=== PATIENT | female | born 1930 | race Caucasian/White ===

== ENCOUNTER → 2016-04-19 | Outpatient (REF) | payer MEDICARE, MEDICAID ==
[2016-04-19 17:11] LABS: REASON FOR REVIEW COMPREHENSIVE REVIEW
[2016-04-19 18:10] LABS: PERCENT SATURATION 73.1 % (13.2-37.4)
[2016-04-24 14:20] LABS: ERYTHROPOIETIN 29.3 mIU/mL (2.6-18.5)
== END ==
LOC: M LAB REF 16:22
PROVIDERS: ATTEND Internal Medicine Medical Oncology
DX: D53.9 Nutritional anemia, unspecified (principal); D72.829 Elevated white blood cell count, unspecified; C95.90 Leukemia, unspecified not having achieved remission

== ENCOUNTER 2016-07-04 10:46 | Inpatient (IN) | payer MEDICARE, MEDICAID ==
[2016-07-04] VITALS (13 sets, daily range): BP systolic 98–124; BP diastolic 51–60; O2SAT 96–98
[~2016-07-04] VITALS: Ht 160 cm; Wt 55.7 kg
[2016-07-04 14:07] LABS: ABG BASE EXCESS 6.3 (-2.0-2.0); ABG DEVICE HIGH FLOW O2; ABG HCO3 31.4 MEQ/L (22.0-26.0); ABG PARTIAL PRESSURE CO2 48.3 mmHg (35.0-45.0); ABG PARTIAL PRESSURE O2 75.8 mmHg (75.0-100.0); ABG STANDARD HCO3 30.2 MEQ/L (22.0-26.0); ABG TOTAL CO2 32.9 MEQ/L (23.0-31.0); ABG pH (ARTERIAL) 7.431 UNITS (7.350-7.450)
[2016-07-04] MEDS ORDERED: FUROSEMIDE 100 MG/10 ML VIAL (J1940) As Ordered ONE (14:23)
[2016-07-04] MEDS ORDERED: FUROSEMIDE 100 MG/10 ML VIAL (J1940) IV ONE (14:30)
[2016-07-04] MEDS ORDERED: ONDANSETRON 4MG/2ML VIAL (J2405) IV PRN (14:30)
--- NOTE | 2016-07-04 15:04 | REP ---
Clinical: Shortness of breath. Technique: Portable semiupright view of the chest. Findings: Perihilar and bilateral lower lobe opacities suggest moderate effusions and pulmonary vascular congestion with interstitial edema and basilar atelectasis. No pneumothorax. Mediastinum and cardiac silhouette are incompletely evaluated due to overlying opacities. Skeletal structures demonstrate osteopenia and degenerative changes including chronic left shoulder fracture. Impression: Findings suggest CHF including bibasilar opacities, pleural effusions and atelectasis. Signed by Jimy Mccartney MD 07/04/2016 02:55 P
[2016-07-04] MEDS ORDERED: COLA100C3 PO (15:21)
[2016-07-04] MEDS ORDERED: IPRASOL4 INH (15:21)
[2016-07-04] MEDS ORDERED: VANC1INJ45 IV (15:21)
[2016-07-04] MEDS ORDERED: OXYC-517 PO (15:21)
[2016-07-04] MEDS ORDERED: LEVO1INJ27 IV (15:21)
[2016-07-04] MEDS ORDERED: GUAI60TA PO (15:21)
[2016-07-04] MEDS ORDERED: ZOSY3INJ2 IV (15:21)
[2016-07-04] MEDS ORDERED: LOVE1INJ2 SC (15:21)
[2016-07-04] MEDS: IPRATROPIUM 0.5MG/ALBUTEROL 2.5MG INH SOL UD 3ML (DUONEB)(J7620) NEB SCH ×2 (16:00→19:40)
--- NOTE | 2016-07-04 16:41 | HPE ---
DATE OF ADMISSION: 07/04/2016 PRIMARY CARE PROVIDER: None listed. ONCOLOGIST: Dr. Hernandez. CODE STATUS: DO NOT RESUSCITATE (DNR). CHIEF COMPLAINT: Shortness of breath. HISTORY OF PRESENT ILLNESS: Miss Álvarez is an 86-year-old female who I accepted on transfer from [facility] from Dr. Clark. Apparently she was originally treated for a left hip fracture earlier this month resulting in an open reduction internal fixation (ORIF), had been sent home and readmitted on 07/02/2016 for increasing shortness of breath, bilateral pulmonary infiltrates with sputum culture positive for Staphylococcus coagulase-positive and Pseudomonas. Was started on triple antibiotic therapy including vancomycin, Zosyn and Levaquin. Had continued to require oxygen supplementation. Concern for sepsis at that time was documented. Her lactic acid however, remained below 1. She did have an initial white count of approximately 18,000. This morning her labs revealed a white count of 26,000. She did requiring increasing oxygen supplementation with eventually the need to go on a non-rebreather. I did review the ABG with the [facility] provider which indicated that she had a compensated slight respiratory alkalosis and due to her worsening condition, I did agree to accept her on transfer. PAST MEDICAL HISTORY: Includes recurrent blood transfusions lower extremity edema, chronic leukemia which she sees Dr. Hernandez for. Her family informs me that she has been in relatively good health prior to her recent hip fracture. Additionally, the nurse did note that she had a stage II decubitus ulcer noted on the buttocks region which has been documented by the nursing notes as well. PAST SURGICAL HISTORY: Left hand tendon surgery, left hip surgery secondary to a left hip fracture recently. SOCIAL HISTORY: She denies tobacco use, alcohol use. No substance abuse. No recent travel. No sick contacts. FAMILY HISTORY: Noncontributory due to advanced age. ALLERGIES: NO KNOWN DRUG ALLERGIES. CURRENT MEDICATIONS: - Colace 100 mg twice a day - albuterol nebs as directed every 6 hours - Lovenox 30 mg every 12 hours - Mucinex 1200 mg every 12 hours - Levaquin 750 mg every 2 days - Oxycodone 5 mg every 4 hours as needed - Zosyn 3.375 grams every 6 hours - Vancomycin daily REVIEW OF SYSTEMS: CONSTITUTIONAL: The patient has had fevers, chills, no rigors, decreased appetite. HEENT: She denies headache, lightheadedness, dizziness, blurry vision, double vision, no difficulty with speech or swallow. PULMONARY: She has had increasing shortness of breath, nonproductive wet cough. No sputum last 24 hours. No hemoptysis. CARDIOVASCULAR: She has had some palpitations 2+ lower extremity edema reported prior to coming to the hospital. She denies chest pain. GI: No nausea, vomiting, diarrhea bowel movements regular. She denies any hematochezia or melena. : No dysuria, frequency or hematuria. MUSCULOSKELETAL: Recent left hip fracture resulting in ORIF SKIN: She does have some skin breakdown on her buttocks region as well as the left lateral hip from previous surgical procedure. NEURO: She denies paresthesias, paralysis and numbness or memory loss. PSYCHIATRIC: No depression, anxiety. No suicidal ideation. ENDOCRINE: Negative for diabetes. No thyroid disorder. HEMATOLOGY/ONCOLOGY: Positive for chronic leukemia which she follows with Dr. Hernandez for. She denies history of venous thromboembolism. No bleeding disorder. She has had recurrent blood transfusion requirements in the past which we will go ahead and consent her for. LYMPHATICS: No lumps, bumps, swelling neck, axilla or groin. No weight loss. 10-point review of systems complete. PHYSICAL EXAMINATION: VITALS: Stable. Oxygen saturations are 94% on 3 liters currently. HEENT: Head is atraumatic, normocephalic. EYES: Pupils equal and reactive to light and accommodation. THROAT: Clear. Mucosa membranes moist. NECK: She does have jugular venous distension (JVD) at approximately 3 cm. LUNGS: Diminished bibasilar breath sounds. She does have crackles throughout all lung santo, occasional wheeze. HEART: Regular rate and rhythm. ABDOMEN: Soft, nontender. Positive bowel sounds. No masses or rebound. EXTREMITIES: She does have 3-4+pitting edema to the mid thighs. Pulses are equal. No calf tenderness. Examination of the left hip region does reveal good granulation of the wound site. She does have a lower lateral wound site that does appear to be slightly more erythematous with what appears to be some crusting. She does have some drainage and will go ahead and do a wound culture on this as well. Again stage II decubitus is noted in the buttocks / sacral region which was present on admission. LABS AND DIAGNOSTICS: 12-lead EKG sinus rhythm. No acute ST-T wave abnormality, ventricular rate is 80. Chest x-ray: Pleural effusion with bibasilar opacities were noted and she does have some cephalization noted of the pulmonary vasculature consistent with congestive heart failure. Her BNP is 267, CK, CK-MB and troponin are pending at this time. I also had an opportunity to review her labs from [facility] this morning and her white count was 26,000, hemoglobin 8.7, hematocrit was 28%, platelets are 252,000, PT 12.3, INR 1.1, D-dimer was 4.1 07/02/2016. We did do an ABG on her arrival here. Her pH 7.431, pCO2 is 48.3. Chemistries done earlier today, sodium 137, potassium 3.4, chloride 102, bicarb 33, anion gap 5, BUN is 18, creatinine 0.3, glucose is 106, AST 40, ALT is 25, alkaline phosphatase 104. IMPRESSION: Miss Álvarez is a pleasant 86-year-old female who presents to [facility] accepted on transfer due to increased hypoxia, shortness of breath and requiring increased need for oxygen supplementation. She grossly appears to be volume overloaded likely from intravenous (IV) fluids that she did receive from while admitted at [facility]. I did explain to the family that I could understand if there was a concern for sepsis and even for recent hip fracture that would be easy for her to be volume overloaded with giving most likely necessary IV fluids. We will go ahead and plan on diuresing her rather aggressively and keep her on telemetry in the intensive care unit (ICU) should her oxygen needs become more concerning she is currently a DO NOT RESUSCITATE/DO NOT INTUBATE. PROBLEM LIST: 1. Acute hypoxia. 2. Bilateral pulmonary infiltrates with positive sputum cultures for Staphylococcus coag positive and Pseudomonas likely underlying healthcare associated pneumonia. 3. Congestive heart failure, probable. She did have a 2-D echo performed previously at [facility] which recorded a good left ventricular ejection fraction. She likely needs aggressive diuresing 4. Recent left hip fracture from mechanical fall. 5. Left hip wound site which we will get a culture on. 6. Sacral decubitus ulcer stage II which was present on admission. We will continue with some foam dressings. 7. Chronic anemia which has required multiple transfusions in the past. I see that she had been on been on Lovenox previously. We will discontinue this and continue to repeat her hemoglobin and hematocrit (H and H). She does not appear to need transfusion Hem/Onc as previously recommended transfusion if hemoglobin drops below 8. 8. CLL. She is not currently receiving any specific therapy. 9. Deep venous thrombosis (DVT) prophylaxis. Again with TEDs and sequentials. 10. Gastrointestinal (GI) prophylaxis. I am actually going to hold off on a proton pump inhibitor (PPI) at this time. She does not appear to be critically ill although she does appear to be volume overloaded. Will try to diurese her overnight and my goal would be to downgrade her tomorrow if she is doing well. Prognosis is guarded at this time. DISPOSITION: I do anticipate she will be here greater than two midnights. Family was present at bedside. I was able to spend time answering several of their questions. 2-D echo performed on 07/03/2016 at [facility] was identified. 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 No change from prior 2-D echo done on 06/13/2016. It was dictating and the troponin level was 0.18. Will repeat this in the morning. I do suspect that with the congestive heart failure (CHF) that she likely has some demand ischemia going on. She has no acute findings on her EKG. Therefore we will repeat a cardiac marker panel on her tomorrow morning to see how she is doing after she has been aggressively diuresed. Will fluid restrict her 1800 mL for now. Strict intake and output (Is and Os) and will see how she does overnight.
--- NOTE | 2016-07-04 17:55 | PHACANCOPD ---
PHARMACY VANCOMYCIN DOSING Pt Demographics Demographics Patient Age:86 , Weight:62.200 , Gender: female Events Past 24 Hours Events Past 24 Hours: NO: Dialysis, Diuretic Therapy, Change in CrCl, Fever, Elevation in WBC, Pending Diagnostics, Pending Procedures, Other Vancomycin Vancomycin Target Ranges: 15-20 mcg/ml Vancomycin Load Y/N: Yes Load Dose Date Time Vancomycin ReLoad Dose: 1..25 GM Date: 07/04/16 Time: 20:00 Vancomycin Dose Date: 07/05/16. Current Vancomycin Dose: [1GM IV Q24H starting at 8AM] Intermittent Dosing?: No Labs Labs 07/03/16: BUN 23 SCR 0.4 Creatinine Clearance Date:07/03/16. Creatinine Clearance: [<40 ml/min]. Assessment and Plan Maintaining Current Dose?: No Reason for dose change: Trough too low Pharmacist Note Pharmacist Note Date: 07/04/16. Pharm.D. note: 86YO FEMALE, 62KG in WEIGHT, 63" in HEIGHT TRANSFERRED HERE FROM [facility] WHERE SHE WAS ON VANCO 500MG IV Q24H, LEVAQUIN 750MG IV Q48H & ZOSYN 3.375GM IV Q6H. A BUN/SCR 07/03/16 = 23/0.4 mcg/ ml. CRCL <40 ml/min. A VANCO TROUGH THIS MORNING = 3.2 mcg/ml. SHE WAS NOT RELOADED THERE DUE TO HER TRANSFER. WE WILL, THEREFORE, GIVE HER A 1.25GM ReLOAD TONIGHT AT 20:00 AND THEN INCREASE HER DAILY DOSE TO 1GM VANCO IV Q24H STARTING AT 8AM 07/05/16. A REPEAT TROUGH WILL BE DRAWN WHEN SHE IS AT STEADY STATE. JENNIFER, Pharm.D. [facility] July 04, 2016 17:55
[2016-07-04] MEDS: FUROSEMIDE 40 MG/4 ML VIAL (J1940) IV SCH (18:00)
[2016-07-04] MEDS: PIPERACILLIN/TAZOBACTAM SOD 3.375 GM in D5W MINI-BAG PLUS 50 ML IV SCH (18:00)
[2016-07-04] MEDS ORDERED: VANCOMYCIN HCL 750 MG, VIAL MATE ADAPTER 1 EACH in D5W 250 ML IV ONE (20:00)
[2016-07-04] MEDS ORDERED: VANCOMYCIN HCL 500 MG in D5W MINI-BAG PLUS 100 ML IV ONE (21:00)
[2016-07-04] MEDS: IPRATROPIUM 0.5MG/ALBUTEROL 2.5MG INH SOL UD 3ML (DUONEB)(J7620) NEB PRN (23:35)
[2016-07-05] VITALS (17 sets, daily range): BP systolic 93–126; BP diastolic 5–79
[2016-07-05] MEDS: FUROSEMIDE 40 MG/4 ML VIAL (J1940) IV SCH ×4 (00:15→18:00)
[2016-07-05] MEDS: PIPERACILLIN/TAZOBACTAM SOD 3.375 GM in D5W MINI-BAG PLUS 50 ML IV SCH ×3 (01:06→18:00)
[2016-07-05 04:49] LABS: MEAN CORPUSCULAR HEMOGLOBIN 30.2 pg (27.0-33.0); MEAN CORPUSCULAR VOLUME 94.5 fl (80.0-96.0)
[2016-07-05 05:15] LABS: ANION GAP 3 MEQ/L (8-16); BLOOD UREA NITROGEN 10 MG/DL (7-18); CALCIUM LEVEL 8.4 MG/DL (8.8-10.2); CARBON DIOXIDE LEVEL 35 MEQ/L (21-32); CHLORIDE LEVEL 103 MEQ/L (98-107); CREATININE FOR GFR 0.32 MG/DL (0.55-1.02); GLOMERULAR FILTRATION RATE > 60.0 (>32); GLUCOSE, FASTING 92 MG/DL (83-110); POTASSIUM SERUM 2.8 MEQ/L (3.5-5.1); SODIUM LEVEL 141 MEQ/L (136-145)
[2016-07-05] MEDS ORDERED: POTASSIUM CHLORIDE 10% LIQ 20 MEQ/15 ML UDC PO ONE (06:00)
[2016-07-05] MEDS: KCL 10MEQ IN 100ML SWI (KRUN) 10 MEQ in APPROPRIATE DILUENT 1 EA IV SCH ×4 (06:13→07:34)
[2016-07-05] MEDS: IPRATROPIUM 0.5MG/ALBUTEROL 2.5MG INH SOL UD 3ML (DUONEB)(J7620) NEB SCH ×3 (06:19→23:02)
[2016-07-05] MEDS: VANCOMYCIN HCL 1,000 MG, VIAL MATE ADAPTER 1 EACH in D5W 250 ML IV SCH (08:29)
[2016-07-05] MEDS ORDERED: VANCOMYCIN HCL 1,000 MG, VIAL MATE ADAPTER 1 EACH in D5W 250 ML IV SCH (09:00)
[2016-07-05 10:54] LABS: MAGNESIUM LEVEL 1.9 MG/DL (1.8-2.4)
[2016-07-05] MEDS: LevoFLOXacin IV 500 MG in APPROPRIATE DILUENT 1 EA IV SCH (11:08)
--- NOTE | 2016-07-05 12:07 | IPN ---
DATE: 07/05/2016 86-year-old female seen at bedside. Family is present. She does feel that she is breathing much better and she has diuresed greater than 4 liters since yesterday afternoon when she arrived from [facility]. She denies chest pain. She denies any significant shortness of breath. She did have some productive sputum late last night but no hemoptysis. No nausea or vomiting. She is tolerating oral intake. OBJECTIVE: Temperature 99.3, temporally, pulse is 94, respiratory rate is 20. She is able speak in complete sentences. She does not appear to be acutely labored. Blood pressure is 126/60, SpO2 96% on between 3-4 liters. GENERAL: The patient appears to be in no acute distress. She is alert, pleasant. HEENT: Unremarkable. LUNGS: Diminished bibasilar breath sounds, occasional crackles, but much improved from yesterday. HEART: Regular rate and rhythm. ABDOMEN: Soft. EXTREMITIES: No edema or calf tenderness. LABORATORY DATA: White count is 7.0, hemoglobin 7.9, platelets are 215,000. Sodium is 141, potassium 2.8, chloride 103, bicarbonate 35, anion gap 3, BUN is 10, creatinine 0.32, glucose 92, CK 22, troponin is 0.12 down from 0.18 yesterday. ASSESSMENT AND PLAN: 1. Acutely decompensated diastolic congestive heart failure, acutely decompensated secondary to volume overload. She is diuresing well. She does appear to be tolerating the Lasix and we will continue to monitor her renal function. 2. Anemia superimposed on her chronic lymphocytic leukemia, which she follows with Dr. Hernandez for. She is typed and screened. We will plan on giving her unit of packed red blood cells morning and giving her dose of Lasix immediately after the transfusion. 3. Hypokalemia, which is being repleted at this point. We will repeat a renal profile on her at noon to see if she needs any further repletion. I did add on a magnesium level as well. I do suspect this is secondary to renal losses due to the aggressive diuresing that we have been doing since she has been here; however, she does appear to be responding well. 4. Healthcare associated pneumonia. She continues on triple antibiotic therapy. We will continue this for another 24 hours and then plan on de-escalating her antibiotic therapy. 5. Acute hypoxia. She does appear to be much improved. 6. Recent left hip fracture and mechanical fall, status post repair with open reduction, internal fixation (ORIF). The wound site of the lower left area does appear to be a bit erythematous and puffy. We will go ahead and check an ultrasound to rule out abscess. 7. Stage II sacral decubitus ulcer present on admission. Continue with foam dressings. 8. Chronic lymphocytic leukemia, as dictated above. 9. Deep vein thrombosis (DVT) prophylaxis. TEDs and sequential. DISPOSITION" She does appear to be responding favorably to the Lasix. I am not going to repeat a 2-D echo. Her troponin does appear to be trending downward. I suspect that she did have slight bump in her troponin level due to demand ischemia and cardiac stretch from the volume overload. We will continue to follow to see how she is doing, but she does not demonstrate any significant issues overnight on telemetry. I suspect we will keep her in intensive care unit (ICU) overnight and then plan on downgrading her tomorrow, either to progressive care unit (PCU) or the general medical floor depending on how she is doing.
[2016-07-05 13:32] LABS: ALBUMIN 2.5 GM/DL (3.2-5.2); ANION GAP 3 MEQ/L (8-16); BLOOD UREA NITROGEN 10 MG/DL (7-18); CALCIUM LEVEL 9.1 MG/DL (8.8-10.2); CARBON DIOXIDE LEVEL 38 MEQ/L (21-32); CHLORIDE LEVEL 100 MEQ/L (98-107); GLOMERULAR FILTRATION RATE > 60.0 (>32); GLUCOSE, FASTING 110 MG/DL (83-110); PHOSPHORUS LEVEL 1.9 MG/DL (2.5-4.9); POTASSIUM SERUM 3.9 MEQ/L (3.5-5.1); SODIUM LEVEL 141 MEQ/L (136-145)
--- NOTE | 2016-07-05 14:32 | ECGEPIP ---
Stationary ECG Study [facility] Test Date: 2016-07-04 Pat Name: SJ ABREU Department: Room: [place] [address] Gender: F Brusher Machine: JAKOB : [id number] Requested By: KALPESH Chambers Order Number: [id number] Reading MD: Gil Cotton Measurements Intervals [place] Rate: 80 P: 44 CA: 151 QRS: 20 QRSD: 85 T: 38 QT: 355 QTc: 411 Interpretive Statements Normal sinus rhythm Low voltages with slow precordial R-wave progression and persistent S waves in V5 and V6; body habitus versus pulmonary disease. Could not rule out prior septal injury. No prior tracing for comparison Electronically Signed On 07-05-2016 14:32:01 EDT by Gil Cotton
--- NOTE | 2016-07-05 14:53 | REP ---
Clinical: Swelling and erythema. Technique: Real time acuña scale and color evaluation using linear high frequency transducer. Findings: Ultrasound examination of the left lower extremity demonstrates diffuse subcutaneous edema. Underlying the surgical incision is an avascular collection measuring 2.2 x 1.4 x 2.3 cm. Underlying the area of maximal erythema and swelling is an avascular complex fluid collection measuring 4.0 x 3.1 x 2.4 cm. Impression: 1. Diffuse lower extremity edema. 2. Fluid collection underlying the incision site may represents seroma, hematoma or possibly abscess. 3. Complex fluid collection at the site of maximal erythema and tenderness may represent hematoma or possibly abscess. Signed by Jimy Mccartney MD 07/05/2016 02:44 P
[2016-07-05] MEDS ORDERED: LIDOCAINE 1% MDV 20ML VIAL As Ordered ONE (16:01)
[2016-07-05] MEDS ORDERED: LIDOCAINE 1% MDV 20ML VIAL SC ONE (16:45)
--- NOTE | 2016-07-05 17:25 | CR ---
DATE OF CONSULTATION: 07/05/2016 REASON FOR CONSULTATION: Left thigh redness status post hip fracture surgery done and level to rule out hematoma or abscess. HISTORY: This is an 86-year-old woman who was about 3 weeks ago treated in [place] by Dr. Matos for a left hip fracture. It appears that she had a trochanteric femoral nail placed. This is based on the location of her incisions. X-ray is pending. She was transferred from [facility] yesterday to the intensive care unit for shortness of breath, bilateral pulmonary infiltrates with positive culture was staph coag positive and Pseudomonas. She has been started on antibiotic therapy. Apparently had a significant leukocytosis recently in the 26,000 range but today is actually 7000. She has been here overnight being diuresed and has improved clinically in terms of her respiratory status and overall well being. She denies any hip pain or any thigh pain. Apparently some sort of superficial culture was obtained from this wound area but this may be polymicrobial being superficial. Ultrasound had been obtained with evidence of possible complex fluid collection at the site of erythema. They felt this could represent a hematoma or possibly abscess. She has been essentially afebrile with a current temperature about 99. PAST MEDICAL HISTORY: Includes previous blood transfusions for chronic lymphocytic leukemia (CLL). She has a recent decubitus ulcer in her buttocks region. PAST SURGICAL HISTORY: Includes left hand tendon surgery, left hip fracture done as above. SOCIAL HISTORY: Denies to tobacco or alcohol use. ALLERGIES: She has no known drug allergies MEDICATIONS ON ADMISSION: Include colace, albuterol, Lovenox, Mucinex, Levaquin, oxycodone, Zosyn and vancomycin. REVIEW OF SYSTEMS: She denies any fevers, chills. Denies any headache, dizziness. PULMONARY: She has had increasing shortness of breath but has been improving overnight. She has had some degree of cough. CARDIOVASCULAR: Denies any particular shortness of breath. Reportedly some palpitations. GI: Denies any nausea, vomiting. MUSCULOSKELETAL: Recent left hip fracture. SKIN: As noted above with decubitus ulcer and buttocks area. NEURO: Denies any numbness, paresthesias or loss of consciousness. ENDOCRINE: Denies diabetes, thyroid. HEMATOLOGY/ONCOLOGY: Notable for chronic leukemia. PHYSICAL EXAMINATION: GENERAL: She is alert, oriented no acute distress. CHEST: Nonlabored breathing. Does have some apparent cough. She moves her neck without difficulties. ABDOMEN: Her abdomen appears to be benign. EXTREMITIES: Left hip area demonstrates a well well-healed incision on the lateral aspect of her hip probably a subcuticular stitch. She also has evidence of the more distal incision possibly were an interlocking screw had been placed that does show some mild swelling and mild erythema about a 2 cm area which is about the length of the incision. It is not tender and there is no current drainage. The radiograph is pending. Ultrasound as above. IMPRESSION: Left lateral sided thigh redness over what appears to be an incision for a distal interlock screw and I presume this is a trochanteric femoral nail system for probably an intertrochanteric or subtrochanteric hip fracture. This was treated at [place]. There is some concern is whether this represents hematoma or a possible infection. I do not think it is likely that it represents a deep infection because I think the patient would be more symptomatic with thigh and hip pain and she has no discomfort at all. RECOMMENDATIONS: My recommendation would be to try to get some fluid from this area and I consented her for this and I explained I would try to aspirate with a needle and if that was unsuccessful with I would opened this up with small blade and obtain cultures. She understands the small risk of infection, drug reaction, bleeding. Under sterile conditions this was prepped and draped and I then injected some 1% plain lidocaine along this distal incision and then tried aspirated with an 18 gauge needle but was unsuccessful getting any fluid so I made an incision along the length of the previous incision about 2 cm. It felt as though there may be some stitches in the deeper tissues. I obtained some aerobic and anaerobic cultures but there was mostly just some clotted blood. There was no evidence of purulence. She tolerated this well. We will send these off for Gram stain culture. Continue with a intravenous (IV) antibiotics and then will follow this along for now. If for some reason it is clinically worsening we could consider a formal incision and drainage (I and D) in the operating room but I think this is not likely to be necessary.
--- NOTE | 2016-07-05 17:28 | REP ---
Clinical: Status post fixation. Technique: Portable AP and frog lateral views of the left hip. Findings: The patient is status post open reduction and fixation for femoral neck fracture. Satisfactory placement and alignment noted. Signed by Jimy Mccartney MD 07/05/2016 05:19 P
[2016-07-05] MEDS ORDERED: SLF 3 ML SYR IV PRN (18:30)
[2016-07-05] MEDS: ACETAMINOPHEN TAB 650MG DOSE (2X325MG) PO PRN (19:41)
[2016-07-05] MEDS: SLF 3 ML SYR IV SCH (20:39)
[2016-07-05] MEDS: guaiFENesin ER 600 MG TAB PO SCH (20:39)
[2016-07-06] VITALS (8 sets, daily range): BP systolic 108–139; BP diastolic 54–68; O2SAT 94
[2016-07-06] MEDS: FUROSEMIDE 40 MG/4 ML VIAL (J1940) IV SCH ×4 (00:18→18:00)
[2016-07-06] MEDS: PIPERACILLIN/TAZOBACTAM SOD 3.375 GM in D5W MINI-BAG PLUS 50 ML IV SCH ×3 (01:52→18:47)
[2016-07-06 04:55] LABS: MEAN CORPUSCULAR HEMOGLOBIN 30.9 pg (27.0-33.0); MEAN CORPUSCULAR HGB CONC 33.1 g/dl (32.0-36.5); MEAN CORPUSCULAR VOLUME 93.4 fl (80.0-96.0); RED CELL DISTRIBUTION WIDTH 20.7 % (11.5-14.5); WHITE BLOOD COUNT 7.2 K/mm3 (4.0-10.0)
[2016-07-06 05:14] LABS: ANION GAP 4 MEQ/L (8-16); BLOOD UREA NITROGEN 9 MG/DL (7-18); CARBON DIOXIDE LEVEL 35 MEQ/L (21-32); CHLORIDE LEVEL 100 MEQ/L (98-107); CREATININE FOR GFR 0.43 MG/DL (0.55-1.02); GLOMERULAR FILTRATION RATE > 60.0 (>32); GLUCOSE, FASTING 104 MG/DL (83-110); POTASSIUM SERUM 3.1 MEQ/L (3.5-5.1); SODIUM LEVEL 139 MEQ/L (136-145)
[2016-07-06] MEDS: SLF 3 ML SYR IV SCH ×3 (06:23→22:00)
[2016-07-06] MEDS ORDERED: FUROSEMIDE 100 MG/10 ML VIAL (J1940) IV ONE (07:15)
[2016-07-06] MEDS ORDERED: POTASSIUM CHLORIDE 10 MEQ SR TABLET PO ONE (07:15)
[2016-07-06] MEDS: IPRATROPIUM 0.5MG/ALBUTEROL 2.5MG INH SOL UD 3ML (DUONEB)(J7620) NEB SCH ×3 (07:32→23:44)
[2016-07-06] MEDS: VANCOMYCIN HCL 1,000 MG, VIAL MATE ADAPTER 1 EACH in D5W 250 ML IV SCH (08:43)
[2016-07-06] MEDS: guaiFENesin ER 600 MG TAB PO SCH ×2 (08:44→20:36)
[2016-07-06] MEDS: LevoFLOXacin IV 500 MG in APPROPRIATE DILUENT 1 EA IV SCH (11:50)
[2016-07-06] MEDS: IPRATROPIUM 0.5MG/ALBUTEROL 2.5MG INH SOL UD 3ML (DUONEB)(J7620) NEB PRN (11:53)
--- NOTE | 2016-07-06 13:56 | PHACANCOPD ---
PHARMACY VANCOMYCIN DOSING Pt Demographics Demographics Patient Age:86 , Weight:56.000 , Gender: female Vancomycin Vancomycin Target Ranges: 15-20 mcg/ml Vancomycin Load Y/N: Yes Load Dose Date Time Vancomycin ReLoad Dose: 1..25 GM Date: 07/04/16 Time: 20:00 Vancomycin Dose Date: 07/05/16. Current Vancomycin Dose: [1GM IV Q24H starting at 8AM] Intermittent Dosing?: No Labs Micro Microbiology 07/05/16 Anaerobic Culture, Received Pending 07/05/16 Gram Stain - Final, Resulted 07/05/16 Abscess Culture, Resulted Pending 07/04/16 Viral Culture, Received Pending 07/04/16 Gram Stain - Final, Resulted 07/04/16 Wound Culture, Resulted Pending Creatinine Clearance Date:07/03/16. Creatinine Clearance: [<40 ml/min]. Assessment and Plan Maintaining Current Dose?: Yes Reason for dose change: No Dose Change Pharmacist Note Pharmacist Note 07/06/16: A vancomycin trough has been scheduled tomorrow, 07/07/16, @0700. Scr and output remain stable. We will continue to monitor and make adjustments as needed. Date: 07/04/16. Pharm.D. note: 86YO FEMALE, 62KG in WEIGHT, 63" in HEIGHT TRANSFERRED HERE FROM [facility] w/[facility] WHERE SHE WAS ON VANCO 500MG IV Q24H, LEVAQUIN 750MG IV Q48H & ZOSYN 3.375GM IV Q6H. A BUN/SCR 07/03/16 = 23/0.4 mcg/ ml. CRCL <40 ml/min. A VANCO TROUGH THIS MORNING = 3.2 mcg/ml. SHE WAS NOT RELOADED THERE DUE TO HER TRANSFER. WE WILL, THEREFORE, GIVE HER A 1.25GM ReLOAD TONIGHT AT 20:00 AND THEN INCREASE HER DAILY DOSE TO 1GM VANCO IV Q24H STARTING AT 8AM 07/05/16. A REPEAT TROUGH WILL BE DRAWN WHEN SHE IS AT STEADY STATE. JENNIFER, Pharm.D. [facility] July 06, 2016 13:55
--- NOTE | 2016-07-06 14:28 | IPN ---
DATE: 07/06/2016 86-year-old female seen at bedside. No overnight issues. Resting comfortably, breathing comfortably. She does have nonproductive cough. Acapella is at bedside. No fevers, chills noted overnight. No nausea, vomiting. OBJECTIVE: Temperature 98.4, pulse 86, respiratory rate is 20, blood pressure 121/58, SPO2 is 94% on 3 liters. GENERAL: The patient appears to be in no acute distress. She is alert, pleasant. HEENT: Unremarkable. LUNGS: Have diminished bibasilar breath sounds, occasional wheeze clears with cough. HEART: Regular rhythm. ABDOMEN: Soft. EXTREMITIES: 2+ edema to below the knees. No calf tenderness. LABORATORY DATA: White count is 7.2, hemoglobin 10.4, platelets 232. Sodium 139, potassium 3.1, chloride 100, bicarb 35, anion gap 4, BUN 9, creatinine 0.43, glucose 104. Examination of the left lateral hip as well does show some good granulation of the wound site previously drained by Dr. Alvarez. Appreciate his input. He did not believe there is any evidence of purulence and the culture results are pending at this time. ASSESSMENT/PLAN: 1. Acutely decompensated diastolic congestive heart failure: She does appear to be volume overload when she presented to the emergency department. Doing well on Lasix. I did give her additional dose and she will need some potassium supplementation. 2. Hypokalemia: Likely due to aggressive diuresing. She is doing well otherwise. We will give her some potassium supplementation. 3. 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 Hernandez. She was typed, screened and given a unit of packed red blood cells yesterday. Lasix immediately after which likely caused some of the hypokalemia seen above. She is doing well otherwise. Dr. Hernandez is aware. 4. Healthcare associated pneumonia: Will continue with triple antibiotic coverage for the time being with Levaquin, Zosyn and vancomycin. 5. Acute hypoxia appears to be much improved. 6. Left hip fracture status post mechanical fall status post repair. She does have a erythematous area of the lateral hip at one of the wound sites. This was drained yesterday by Dr. Alvarez. Appreciate orthopedics input. Cultures pending at this time. Will continue with current antibiotics. I did request physical therapy (PT), occupational therapy ( OT), physical medicine rehabilitation (PMR) evaluation for possible rehab when she improves medically. 7. Stage II sacral decubitus ulcer present on admission. Continue with foam dressings 8. CLL dictated above. 9. Deep venous thrombosis (DVT) prophylaxis. Thromboembolic deterrent stockings (TEDS) and sequentials. DISPOSITION: She appears to be improving clinically each day. Will go ahead and downgrade her today to the medical floor. I do anticipate she will be here through the weekend and then perhaps ready for discharge to acute rehab on Saturday of next week.
[2016-07-07] MEDS: FUROSEMIDE 40 MG/4 ML VIAL (J1940) IV SCH ×4 (00:12→18:36)
[2016-07-07] MEDS: PIPERACILLIN/TAZOBACTAM SOD 3.375 GM in D5W MINI-BAG PLUS 50 ML IV SCH (02:04)
[2016-07-07] MEDS: SLF 3 ML SYR IV SCH ×3 (05:44→21:27)
[2016-07-07 06:00] VITALS: BP 122/60
[2016-07-07 06:59] LABS: MEAN CORPUSCULAR HEMOGLOBIN 30.8 pg (27.0-33.0); MEAN CORPUSCULAR HGB CONC 33.6 g/dl (32.0-36.5); MEAN CORPUSCULAR VOLUME 91.8 fl (80.0-96.0); RED CELL DISTRIBUTION WIDTH 19.7 % (11.5-14.5); WHITE BLOOD COUNT 11.6 K/mm3 (4.0-10.0)
[2016-07-07 07:21] LABS: ANION GAP 6 MEQ/L (8-16); BLOOD UREA NITROGEN 9 MG/DL (7-18); CALCIUM LEVEL 8.6 MG/DL (8.8-10.2); CARBON DIOXIDE LEVEL 38 MEQ/L (21-32); CHLORIDE LEVEL 97 MEQ/L (98-107); CREATININE FOR GFR 0.43 MG/DL (0.55-1.02); GLOMERULAR FILTRATION RATE > 60.0 (>32); GLUCOSE, FASTING 92 MG/DL (83-110); POTASSIUM SERUM 2.9 MEQ/L (3.5-5.1); SODIUM LEVEL 141 MEQ/L (136-145)
[2016-07-07] MEDS: IPRATROPIUM 0.5MG/ALBUTEROL 2.5MG INH SOL UD 3ML (DUONEB)(J7620) NEB SCH ×3 (07:28→23:24)
[2016-07-07] MEDS: POTASSIUM CHLORIDE 10 MEQ SR TABLET PO SCH ×2 (08:00→12:42)
[2016-07-07] MEDS: VANCOMYCIN HCL 1,000 MG, VIAL MATE ADAPTER 1 EACH in D5W 250 ML IV SCH (08:00)
--- NOTE | 2016-07-07 08:39 | PHACANCOPD ---
PHARMACY VANCOMYCIN DOSING Pt Demographics Demographics Patient Age:86 , Weight:57.800 , Gender: female Events Past 24 Hours Events Past 24 Hours: YES: Elevation in WBC, NO: Dialysis, Diuretic Therapy, Change in CrCl, Fever, Pending Diagnostics, Pending Procedures, Other Vancomycin Vancomycin Target Ranges: 15-20 mcg/ml Vancomycin Load Y/N: Yes Load Dose Date Time Vancomycin ReLoad Dose: 1..25 GM Date: 07/04/16 Time: 20:00 Vancomycin Dose Date: 07/07/16. Current Vancomycin Dose: [1g IV q18h @08] Date: 07/05/16. Current Vancomycin Dose: [1GM IV Q24H starting at 8AM] Intermittent Dosing?: No Labs Labs Vital Signs Label Value Date Time Patient Temperature 99.1 degrees F 07/06/16 2200 Temperature Source Core 07/06/16 2200 Patient Temperature 99.0 degrees F 07/06/16 1145 Temperature Source Core 07/06/16 1145 Patient Temperature 98.6 degrees F 07/07/16 0600 Temperature Source Core 07/07/16 0600 Item Value Date Time White Blood Count 7.0 K/mm3 07/05/16 0436 White Blood Count 7.2 K/mm3 07/06/16 0433 White Blood Count 11.6 K/mm3 H 07/07/16 0652 Vancomycin Level Trough 8.1 UG/ML L 07/07/16 0652 Creatinine 0.40 MG/DL L 07/05/16 1233 Creatinine 0.43 MG/DL L 07/06/16 0433 Creatinine 0.43 MG/DL L 07/07/16 0652 Micro Microbiology 07/05/16 Anaerobic Culture - Final, Complete 07/05/16 Gram Stain - Final, Complete 07/05/16 Abscess Culture - Final, Complete 07/04/16 Viral Culture, Received Pending 07/04/16 Gram Stain - Final, Complete 07/04/16 Wound Culture - Final, Complete Staphylococcus Sp Coag Neg Bacillus Sp., Not Anthracis Creatinine Clearance Date:07/03/16. Creatinine Clearance: [<40 ml/min]. Assessment and Plan Maintaining Current Dose?: No Reason for dose change: Trough too low Pharmacist Note Pharmacist Note Date: 07/07/16. Pharmacist note: vanco trough drawn ~1 hour before the 3rd dose was 8.1. I have changed her dosing to 1g IV q18h, SCr is stable & abnormally low. Zosyn has been stopped. We will continue to monitor. 07/06/16: A vancomycin trough has been scheduled tomorrow, 07/07/16, @0700. Scr and output remain stable. We will continue to monitor and make adjustments as needed. Date: 07/04/16. Pharm.D. note: 86YO FEMALE, 62KG in WEIGHT, 63" in HEIGHT TRANSFERRED HERE FROM [facility] w/[facility] WHERE SHE WAS ON VANCO 500MG IV Q24H, LEVAQUIN 750MG IV Q48H & ZOSYN 3.375GM IV Q6H. A BUN/SCR 07/03/16 = 23/0.4 mcg/ ml. CRCL <40 ml/min. A VANCO TROUGH THIS MORNING = 3.2 mcg/ml. SHE WAS NOT RELOADED THERE DUE TO HER TRANSFER. WE WILL, THEREFORE, GIVE HER A 1.25GM ReLOAD TONIGHT AT 20:00 AND THEN INCREASE HER DAILY DOSE TO 1GM VANCO IV Q24H STARTING AT 8AM 07/05/16. A REPEAT TROUGH WILL BE DRAWN WHEN SHE IS AT STEADY STATE. JENNIFER, Pharm.D. Eleazar Arboleda Pharm.D. July 07, 2016 08:39
[2016-07-07] MEDS: guaiFENesin ER 600 MG TAB PO SCH ×2 (08:54→21:27)
--- NOTE | 2016-07-07 08:54 | IPN ---
DATE: 07/07/2016 86-year-old female seen at bedside resting comfortably. She is receiving a nebulizer treatment. She has continued to have good urine outputs measured each day. She is approximately 13 liters negative this point. She did have some abdominal discomfort earlier today. A ultrasound of bladder did show that she is was retaining some fluid. Her Simon catheter was adjusted, apparently it did have a kink in it and appears to be draining quite well at this time. She denies any other complaints currently. OBJECTIVE: Temperature is 98.6, pulse 88, respiratory rate 18, BP 122/60, SPO2 is 93% on 4 liters. General: The patient appears to be in no acute distress. She is alert, pleasant. HEENT: Unremarkable. Lungs: Diminished bibasilar breath sounds with a few crackles, but does appear to be improving. Heart: Regular rate and rhythm. Abdomen: Soft. Extremities: She does have 1+ edema just below the knees. No calf tenderness. Pulses are palpable. LABORATORY DATA: White count is 11.6, hemoglobin 10.7, platelets are 221,000, sodium 141, potassium 2.9, chloride 97, bicarb 38, anion gap 6, BUN is 9, creatinine 0.43, glucose is 92, calcium 8.6. ASSESSMENT/PLAN: 1. Acutely decompensated diastolic congestive heart failure. She presented in what appeared to be quite a bit of volume overload. She has had approximately 13+ liters that she has been able to put out, she is not quite euvolemic as of yet. We will continue with the Lasix and potassium supplementation as needed. 2. Hypokalemia, likely due to aggressive diuresing we will supplement her potassium, recheck at noon. 3. 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 Dr. Bryant is aware we did give her a blood transfusion previously and she does appear to be maintaining a good H H. I would like to go ahead and do a chest x-ray on her today. We will likely de-escalate her to single therapy with Levaquin at this point. 4. Acute hypoxia appears to be much improved with diuresing,she is still requiring some oxygen supplementation. 5. Left hip fracture status post mechanical fall status post repair. Erythematous area in the left hip. Appreciate Dr. Alvarez's assistance with drainage of small are likely seroma. Her wound culture however grew Staphylococcus coag-negative which does have multiple resistance, we will likely need to keep on vancomycin for a few more days for this as well. At any rate she remains afebrile. 6. Stage II sacral decubitus ulcer present on admission. Continue the foam dressings. 7. CLL as dictated above. 8. Deep venous thrombosis (DVT) prophylaxis with SOUTH and sequentials. DISPOSITION: The patient is making some good progress. We will continue to diurese. I would like to de-escalate her antibiotics, do a chest x-ray and see if we can get her down to Levaquin and vancomycin to cover the skin infection as well as the pneumonia. We will supplement the potassium as indicated. Continue with Lasix. Chest x-ray today. We do have physical therapy, occupational therapy evaluations in place and at the beginning of the week I would like for her to evaluated for PM R status. She will likely need to be able to complete 3 hours of therapy. All-in-all she does appear to be progressing nicely, but I do suspect that she will have a few more days before she is ready to be evaluated for PM R.
--- NOTE | 2016-07-07 09:13 | REP ---
Clinical: Cough. Technique: AP and lateral. Comparison: 07/04/2016. Findings: [id number] bilateral pleural effusions with bibasilar atelectasis. Visualized portions of the mediastinum and cardiac silhouette are relatively normal / stable. Underlying chronic interstitial changes noted throughout the bilateral lung santo. No pneumothorax. Skeletal structures are stable and again demonstrate diffuse osteopenia and old proximal left shoulder fracture. Impression: [id number] bilateral pleural effusions with bibasilar atelectasis. Signed by Jimy Mccartney MD 07/07/2016 09:05 A
[2016-07-07] MEDS: LevoFLOXacin 500 MG TABLET PO SCH (12:42)
[2016-07-07 14:00] VITALS: BP 123/59
[2016-07-07 15:08] LABS: ALBUMIN 2.5 GM/DL (3.2-5.2); PHOSPHORUS LEVEL 2.5 MG/DL (2.5-4.9)
[2016-07-07 16:19] LABS: ALBUMIN 2.5 GM/DL (3.2-5.2); ANION GAP 3 MEQ/L (8-16); BLOOD UREA NITROGEN 11 MG/DL (7-18); CALCIUM LEVEL 8.7 MG/DL (8.8-10.2); CARBON DIOXIDE LEVEL 41 MEQ/L (21-32); CHLORIDE LEVEL 96 MEQ/L (98-107); CREATININE FOR GFR 0.51 MG/DL (0.55-1.02); GLOMERULAR FILTRATION RATE > 60.0 (>32); GLUCOSE, FASTING 108 MG/DL (83-110); PHOSPHORUS LEVEL 2.4 MG/DL (2.5-4.9); POTASSIUM SERUM 3.9 MEQ/L (3.5-5.1); SODIUM LEVEL 140 MEQ/L (136-145)
[2016-07-07 22:00] VITALS: BP 133/59
[2016-07-08] VITALS (7 sets, daily range): BP systolic 95–133; BP diastolic 50–63
[2016-07-08] MEDS: FUROSEMIDE 40 MG/4 ML VIAL (J1940) IV SCH ×4 (00:15→19:06)
[2016-07-08] MEDS: VANCOMYCIN HCL 1,000 MG, VIAL MATE ADAPTER 1 EACH in D5W 250 ML IV SCH ×2 (02:15→21:14)
[2016-07-08] MEDS: LevoFLOXacin 500 MG TABLET PO SCH (06:29)
[2016-07-08] MEDS: SLF 3 ML SYR IV SCH ×3 (06:30→21:14)
[2016-07-08 06:31] LABS: MEAN CORPUSCULAR HEMOGLOBIN 30.9 pg (27.0-33.0); MEAN CORPUSCULAR HGB CONC 33.1 g/dl (32.0-36.5); MEAN CORPUSCULAR VOLUME 93.4 fl (80.0-96.0); RED CELL DISTRIBUTION WIDTH 19.8 % (11.5-14.5); WHITE BLOOD COUNT 10.9 K/mm3 (4.0-10.0)
[2016-07-08 06:38] LABS: ANION GAP 4 MEQ/L (8-16); BLOOD UREA NITROGEN 10 MG/DL (7-18); CALCIUM LEVEL 8.8 MG/DL (8.8-10.2); CARBON DIOXIDE LEVEL 41 MEQ/L (21-32); CHLORIDE LEVEL 96 MEQ/L (98-107); CREATININE FOR GFR 0.43 MG/DL (0.55-1.02); GLOMERULAR FILTRATION RATE > 60.0 (>32); GLUCOSE, FASTING 87 MG/DL (83-110); MAGNESIUM LEVEL 2.1 MG/DL (1.8-2.4); POTASSIUM SERUM 3.4 MEQ/L (3.5-5.1); SODIUM LEVEL 141 MEQ/L (136-145)
[2016-07-08] MEDS ORDERED: POTASSIUM CHLORIDE 10 MEQ SR TABLET PO ONE (07:00)
[2016-07-08] MEDS: IPRATROPIUM 0.5MG/ALBUTEROL 2.5MG INH SOL UD 3ML (DUONEB)(J7620) NEB SCH ×2 (07:29→20:18)
[2016-07-08] MEDS: guaiFENesin ER 600 MG TAB PO SCH ×2 (09:37→21:14)
--- NOTE | 2016-07-08 11:37 | IPN ---
DATE: 07/08/2016 86-year-old female seen at bedside, actually sitting beside her bed eating breakfast this morning. She feels much better improvement with each day. OBJECTIVE: Temperature 98, pulse 85 and regular, respiratory rate 18, blood pressure 122/57 , SpO2 is 95% on 4 liters. GENERAL: The patient appears to be in no acute distress, alert, oriented. HEENT: Unremarkable. LUNGS: Diminished bibasilar breath sounds, occasional wheeze clears with cough. HEART: Regular rate and rhythm. ABDOMEN: Soft. EXTREMITIES: She does have some pitting edema still at the ankles. No calf tenderness. LABORATORY DATA: White count is 10.9 down from 11.6. Hemoglobin 10.2 and stable. Platelets 214,000. Sodium 141, potassium 3.4, supplemented, chloride 96, bicarb 41, anion gap 4, BUN is 10, creatinine 0.43, glucose 87. ASSESSMENT/PLAN: 1. Acutely decompensated diastolic congestive heart failure. She continues to do well with having good urine output. Will continue with Lasix and potassium supplementation as needed. 2. Hyperkalemia secondary to aggressive diuresing. Will continue with supplementation as needed. 3. Anemia superimposed on chronic lymphocytic leukemia (CLL). Her hemoglobin and hematocrit appears to be stable. Will continue to follow. No transfusion for today. 4. Acute hypoxia. Much improvement. Chest x-ray yesterday did show that she has bilateral pleural effusions. However, symptomatically she does appear to be improving with diuresis. 5. Left hip fracture status post mechanical fall, status post repair. Erythematous area on the left hip. Appreciate Dr. Alvarez's assistance. 6. Multi resistant staph coag-negative. Will leave her on vancomycin for a few more days for this. She remains afebrile. 7. Stage II sacral decubitus ulcer present on admission. Continue with foam dressing. 8. CLL. As dictated above. 9. Deep vein thrombosis (DVT) prophylaxis. Thromboembolic deterrent stockings (TEDS) and sequentials. DISPOSITION: 2D echo from [facility] showed a good ejection fraction. Will continue to try to diurese her some more. Continue with physical therapy, occupational therapy and evaluation for physical medicine and rehabilitation this coming Saturday. Again, her 2D echo performed at [facility] showed a good left ventricular ejection fraction. [facility]
[2016-07-09] MEDS: FUROSEMIDE 40 MG/4 ML VIAL (J1940) IV SCH ×2 (00:18→05:47)
[2016-07-09] MEDS: LevoFLOXacin 500 MG TABLET PO SCH (05:46)
[2016-07-09] MEDS: SLF 3 ML SYR IV SCH ×3 (05:47→20:07)
[2016-07-09 06:00] VITALS: BP 112/53
[2016-07-09 06:22] LABS: MEAN CORPUSCULAR HEMOGLOBIN 30.4 pg (27.0-33.0); MEAN CORPUSCULAR HGB CONC 32.5 g/dl (32.0-36.5); MEAN CORPUSCULAR VOLUME 93.7 fl (80.0-96.0); RED CELL DISTRIBUTION WIDTH 19.7 % (11.5-14.5); WHITE BLOOD COUNT 11.9 K/mm3 (4.0-10.0)
[2016-07-09 06:32] LABS: ANION GAP 3 MEQ/L (8-16); BLOOD UREA NITROGEN 13 MG/DL (7-18); CALCIUM LEVEL 9.2 MG/DL (8.8-10.2); CARBON DIOXIDE LEVEL 39 MEQ/L (21-32); CHLORIDE LEVEL 97 MEQ/L (98-107); CREATININE FOR GFR 0.43 MG/DL (0.55-1.02); GLOMERULAR FILTRATION RATE > 60.0 (>32); GLUCOSE, FASTING 91 MG/DL (83-110); POTASSIUM SERUM 3.3 MEQ/L (3.5-5.1); SODIUM LEVEL 139 MEQ/L (136-145)
[2016-07-09] MEDS: IPRATROPIUM 0.5MG/ALBUTEROL 2.5MG INH SOL UD 3ML (DUONEB)(J7620) NEB SCH ×3 (08:00→19:53)
[2016-07-09] MEDS ORDERED: POTASSIUM CHLORIDE 10 MEQ SR TABLET PO ONE (08:30)
--- NOTE | 2016-07-09 08:31 | IPN ---
DATE: 07/09/2016 Roberta is a patient of Dr. Wood'anupam who was admitted with diastolic congestive heart failure. She gets dizzy, weak and lightheaded when she stands up. Her pressures are a little soft today as well. She has a history of chronic lymphocytic leukemia with also some anemia which she contributes to her restlessness. Denies any chest pain or shortness of breath today. PHYSICAL EXAMINATION: 112/53, pulse 86, respirations 18, 94% oxygen saturation on 4 liters, 98.4 degrees. General appearance: Elderly, frail, resting comfortably. No jugular venous distention (JVD) present. Fibrotic rales both bases. Heart: Regular rhythm with 1/6 systolic ejection murmur. Abdomen: Soft, nontender, no masses, no peripheral edema. LABS: White count 11.9, hemoglobin 9.9, platelets 189. Sodium 139, potassium 3.3, BUN 13, creatinine 0.4, glucose 91. IMPRESSION: 1. Diastolic congestive heart failure, seems improved symptomatically. She still has high oxygen requirements. I am going to stop her IV Lasix today and put her on an oral dose of Lasix. 2. Coag negative staphylococcus. There is pseudomonas in her sputum. She is on vancomycin and Zosyn. These probably could be discontinued in another few days. 3. Anemia, stable. No need for transfusion today. 4. Left hip fracture, being seen by orthopedics here.
[2016-07-09] MEDS: guaiFENesin ER 600 MG TAB PO SCH ×2 (08:43→20:07)
[2016-07-09] MEDS: ACETAMINOPHEN TAB 650MG DOSE (2X325MG) PO PRN ×2 (09:53→18:37)
[2016-07-09 14:00] VITALS: BP 91/55
[2016-07-09] MEDS: VANCOMYCIN HCL 1,000 MG, VIAL MATE ADAPTER 1 EACH in D5W 250 ML IV SCH (14:29)
[2016-07-09 19:45] VITALS: O2SAT 94
[2016-07-09 22:00] VITALS: BP 104/55
[2016-07-10] MEDS: LevoFLOXacin 500 MG TABLET PO SCH (05:25)
[2016-07-10] MEDS: SLF 3 ML SYR IV SCH ×3 (05:25→20:08)
[2016-07-10 05:53] LABS: MEAN CORPUSCULAR HEMOGLOBIN 31.4 pg (27.0-33.0); MEAN CORPUSCULAR HGB CONC 33.4 g/dl (32.0-36.5); MEAN CORPUSCULAR VOLUME 94.2 fl (80.0-96.0); RED CELL DISTRIBUTION WIDTH 20.4 % (11.5-14.5)
[2016-07-10 06:00] VITALS: BP 95/52
[2016-07-10 06:06] LABS: ANION GAP 2 MEQ/L (8-16); BLOOD UREA NITROGEN 16 MG/DL (7-18); CALCIUM LEVEL 9.5 MG/DL (8.8-10.2); CARBON DIOXIDE LEVEL 39 MEQ/L (21-32); CHLORIDE LEVEL 98 MEQ/L (98-107); CREATININE FOR GFR 0.42 MG/DL (0.55-1.02); GLOMERULAR FILTRATION RATE > 60.0 (>32); GLUCOSE, FASTING 88 MG/DL (83-110); SODIUM LEVEL 139 MEQ/L (136-145)
[2016-07-10] MEDS: IPRATROPIUM 0.5MG/ALBUTEROL 2.5MG INH SOL UD 3ML (DUONEB)(J7620) NEB SCH ×3 (08:00→19:12)
[2016-07-10] MEDS: guaiFENesin ER 600 MG TAB PO SCH ×2 (08:41→20:07)
[2016-07-10] MEDS: VANCOMYCIN HCL 1,000 MG, VIAL MATE ADAPTER 1 EACH in D5W 250 ML IV SCH (08:41)
[2016-07-10] MEDS: FUROSEMIDE 40 MG TAB PO SCH (08:41)
[2016-07-10] MEDS: POTASSIUM CHLORIDE 10 MEQ SR TABLET PO SCH (08:42)
[2016-07-10 14:00] VITALS: BP 132/58
[2016-07-10] MEDS: ACETAMINOPHEN TAB 650MG DOSE (2X325MG) PO PRN (17:05)
[2016-07-10 19:02] VITALS: O2SAT 9
--- NOTE | 2016-07-10 21:40 | IPNPDOC ---
Subjective Date Seen The patient was seen on 07/10/16. Subjective Chief Complaint/HPI The patient is a 86-year-old female admitted with a reason for visit of Repiratory Distress. Events since last encounter patient does not offer any complaints this am. Objective Physical Examination General Exam: Positive: Alert, Cooperative, No Acute Distress Eye Exam: Positive: PERRLA, Conjunctiva & lids normal, EOMI, Negative: Sclera icteric ENT Exam: Positive: Atraumatic, Mucous membr. moist/pink, Pharynx Normal Neck Exam: Positive: Supple, Negative: JVD, thyromegaly Chest Exam: Positive: Normal air movement, Rales Heart Exam: Positive: Rate Normal, Regular Rhythm, Normal S1, Normal S2, Negative: Murmurs, Rubs Abdomen Exam: Positive: Normal bowel sounds, Soft, Negative: Tenderness, Hepatospenomegaly Extremity Exam: Positive: Normal pulses, Negative: Clubbing, Cyanosis, Edema Assessment /Plan Problems (1) HCAP (healthcare-associated pneumonia) Status: Acute Problem Text: finished course of antibiotics zosyn and vanco followed by levofloxacin and vanco received total 8 days of antibiotics. sputum culture from other hospital was pseudomonus and coagulase positive staph. (2) Diastolic CHF, acute on chronic Status: Acute Problem Text: will continue with diuresis. (3) Hypoxia Status: Acute Problem Text: multifactorial due to chf and HCAP will continue with oxygen supplementation. (4) Surgical wound infection Problem Text: possible cellulitis of the surgical wound of the hip fracture surgery finished 8 days of antibiotics. cultures of wound negative but gram stain was coagulase negative staph. (5) Hip fracture Status: Acute Problem Text: left hip fracture s/p ORIF in first week of june (6) Decubitus ulcer of back Status: Acute Problem Text: present on admission. (7) CLL (chronic lymphocytic leukemia) Status: Chronic (8) Anemia Status: Chronic Plan/VTE VTE Prophylaxis Ordered?: Yes VS, I&O, 24H, Fishbone Vital Signs/I&O Vital Signs Date Time Temp Pulse Resp B/P (MAP) Pulse Ox O2 Delivery O2 Flow Rate FiO2 07/10/16 19:02 9 Nasal Cannula 3.0 07/10/16 14:00 97.2 93 20 132/58 (82) 07/04/16 20:56 35 I&O- Last 24 Hours up to 6 AM 07/10/16 06:00 Intake Total 980 ml Output Total 550 ml Balance 430 ml Laboratory Data 24H LABS Laboratory Tests 2 07/10/16 05:34: Anion Gap 2L, Glomerular Filtration Rate > 60.0, Blood Urea Nitrogen 16, Creatinine 0.42L, Sodium Level 139, Potassium Level 4.0#, Chloride Level 98, Carbon Dioxide Level 39H, Calcium Level 9.5 CBC/BMP Laboratory Tests 07/10/16 05:34 Red Blood Count 3.05 L, Mean Corpuscular Volume 94.2, Mean Corpuscular Hemoglobin 31.4, Mean Corpuscular Hemoglobin Concent 33.4, Red Cell Distribution Width 20.4 H, Calcium Level 9.5 Microbiology Microbiology 07/05/16 Anaerobic Culture - Final, Complete 07/05/16 Gram Stain - Final, Complete 07/05/16 Abscess Culture - Final, Complete 07/04/16 Viral Culture, Received Pending 07/04/16 Gram Stain - Final, Complete 07/04/16 Wound Culture - Final, Complete Staphylococcus Sp Coag Neg Bacillus Sp., Not Anthracis CLAUDETTE FISHMAN MD July 10, 2016 21:40
[2016-07-10 22:00] VITALS: BP 100/50
[2016-07-11] MEDS: ACETAMINOPHEN TAB 650MG DOSE (2X325MG) PO PRN (00:15)
[2016-07-11] MEDS: SLF 3 ML SYR IV SCH (05:16)
[2016-07-11 06:00] VITALS: BP 108/54
[2016-07-11 06:35] LABS: MEAN CORPUSCULAR HEMOGLOBIN 30.8 pg (27.0-33.0); MEAN CORPUSCULAR VOLUME 93.5 fl (80.0-96.0); RED CELL DISTRIBUTION WIDTH 20.5 % (11.5-14.5); WHITE BLOOD COUNT 13.9 K/mm3 (4.0-10.0)
[2016-07-11 06:51] LABS: ANION GAP 4 MEQ/L (8-16); BLOOD UREA NITROGEN 17 MG/DL (7-18); CALCIUM LEVEL 9.5 MG/DL (8.8-10.2); CARBON DIOXIDE LEVEL 35 MEQ/L (21-32); CHLORIDE LEVEL 100 MEQ/L (98-107); CREATININE FOR GFR 0.48 MG/DL (0.55-1.02); GLOMERULAR FILTRATION RATE > 60.0 (>32); GLUCOSE, FASTING 90 MG/DL (83-110); POTASSIUM SERUM 3.8 MEQ/L (3.5-5.1); SODIUM LEVEL 139 MEQ/L (136-145)
[2016-07-11] MEDS: IPRATROPIUM 0.5MG/ALBUTEROL 2.5MG INH SOL UD 3ML (DUONEB)(J7620) NEB SCH (08:02)
[2016-07-11] MEDS: guaiFENesin ER 600 MG TAB PO SCH (08:11)
[2016-07-11] MEDS: FUROSEMIDE 40 MG TAB PO SCH (08:11)
[2016-07-11] MEDS: POTASSIUM CHLORIDE 10 MEQ SR TABLET PO SCH (08:12)
--- NOTE | 2016-07-11 11:49 | IPNPDOC ---
Subjective Date Seen The patient was seen on 07/11/16. Subjective Chief Complaint/HPI The patient is a 86-year-old female admitted with a reason for visit of Repiratory Distress. Events since last encounter no complaints this morning , requiring less oxygen Objective Physical Examination General Exam: Positive: Alert, Cooperative, No Acute Distress Eye Exam: Positive: PERRLA, Conjunctiva & lids normal, EOMI, Negative: Sclera icteric ENT Exam: Positive: Atraumatic, Mucous membr. moist/pink, Pharynx Normal Neck Exam: Positive: Supple, Negative: JVD, thyromegaly Chest Exam: Positive: Normal air movement, Rales Heart Exam: Positive: Rate Normal, Regular Rhythm, Normal S1, Normal S2, Negative: Murmurs, Rubs Abdomen Exam: Positive: Normal bowel sounds, Soft, Negative: Tenderness, Hepatospenomegaly Extremity Exam: Positive: Normal pulses, Negative: Clubbing, Cyanosis, Edema Assessment /Plan Problems (1) HCAP (healthcare-associated pneumonia) Status: Acute Problem Text: finished course of antibiotics zosyn and vanco followed by levofloxacin and vanco received total 8 days of antibiotics. sputum culture from other hospital was pseudomonus and coagulase positive staph. (2) Diastolic CHF, acute on chronic Status: Acute Problem Text: will continue with diuresis. (3) Hypoxia Status: Acute Problem Text: multifactorial due to chf and HCAP will continue with oxygen supplementation. (4) Surgical wound infection Problem Text: possible cellulitis of the surgical wound of the hip fracture surgery finished 8 days of antibiotics. cultures of wound negative but gram stain was coagulase negative staph. (5) Hip fracture Status: Acute Problem Text: left hip fracture s/p ORIF in first week of june (6) Decubitus ulcer of back Status: Acute Problem Text: present on admission. will get wound consult (7) CLL (chronic lymphocytic leukemia) Status: Chronic Problem Text: gets intermittent blood transfusion (8) Anemia Status: Chronic Plan/VTE VTE Prophylaxis Ordered?: Yes VS, I&O, 24H, Fishbone Vital Signs/I&O Vital Signs Date Time Temp Pulse Resp B/P (MAP) Pulse Ox O2 Delivery O2 Flow Rate FiO2 07/11/16 06:00 98.5 83 18 108/54 (72) 93 Nasal Cannula 2.0 I&O- Last 24 Hours up to 6 AM 07/11/16 05:59 Intake Total 1000 ml Output Total 1375 ml Balance -375 ml Laboratory Data 24H LABS Laboratory Tests 2 07/11/16 06:25: Anion Gap 4L, Glomerular Filtration Rate > 60.0, Blood Urea Nitrogen 17, Creatinine 0.48L, Sodium Level 139, Potassium Level 3.8, Chloride Level 100, Carbon Dioxide Level 35H, Calcium Level 9.5 CBC/BMP Laboratory Tests 07/11/16 06:25 Red Blood Count 3.21 L, Mean Corpuscular Volume 93.5, Mean Corpuscular Hemoglobin 30.8, Mean Corpuscular Hemoglobin Concent 33.0, Red Cell Distribution Width 20.5 H, Calcium Level 9.5 Microbiology Microbiology 07/05/16 Anaerobic Culture - Final, Complete 07/05/16 Gram Stain - Final, Complete 07/05/16 Abscess Culture - Final, Complete 07/04/16 Viral Culture, Received Pending 07/04/16 Gram Stain - Final, Complete 07/04/16 Wound Culture - Final, Complete Staphylococcus Sp Coag Neg Bacillus Sp., Not Anthracis CLAUDETTE FISHMAN MD July 11, 2016 11:49
[2016-07-11] MEDS ORDERED: FURO40TA2 PO (12:01)
[2016-07-11] MEDS ORDERED: ACET65TA PO (12:01)
[2016-07-11] MEDS ORDERED: GUAI60TA PO (12:01)
[2016-07-11] MEDS ORDERED: K-TA10TA PO (12:01)
--- NOTE | 2016-07-13 22:12 | DSES ---
DATE OF ADMISSION: 07/04/2016 DATE OF DISCHARGE: 07/11/2016 PRIMARY CARE PROVIDER: Dr. Chiang ONCOLOGIST: Dr. Hernandez DISCHARGE DIAGNOSIS: 1. Healthcare associated pneumonia, finished course of Zosyn and vancomycin. 2. Surgical wound site cellulitis, finished antibiotic treatment. 3. Acute on chronic diastolic congestive heart failure. 4. Unstageable decubitus ulcer of the back. 5. Chronic lymphocytic leukemia. 6. Chronic anemia 7. Hypoxia due to congestive heart failure (CHF) exacerbation and pneumonia , which is resolved. 8. Recent hip fracture on the left, status post open reduction and internal fixation (ORIF) in the first week of June. DISCHARGE MEDICATIONS: - Tylenol 650 mg every 4 hours as needed for pain - Lasix 40 mg by mouth daily - Mucinex 600 mg by mouth twice a day - potassium chloride 20 mEq by mouth daily - albuterol ipratropium nebulizer solution, one solution every 6 hours - Colace 100 mg by mouth twice a day HOSPITAL COURSE: This is an 86-year-old female who was transferred for [facility] where she was admitted for shortness of breath and bilateral pulmonary infiltrates with sputum production. Sputum culture was positive for staphylococcus coagulase positive and pseudomonas. The patient was diagnosed with healthcare associated pneumonia and was started on antibiotic therapy with vancomycin, Zosyn and Levaquin. The patient had a recent hospitalization in the first week of June for left hip fracture and underwent open reduction and internal fixation (ORIF). During the stay in [facility], the patient became increasingly hypoxic requiring nonrebreather oxygenation and so was subsequently transferred to our hospital for possibly requiring ventilation. Here, the patient was continued treatment for pneumonia with vancomycin and Zosyn. The patient was also noted to have erythema, swelling and cellulitis around the left surgical wound site. Culture was done and the patient was seen by orthopedic surgeon. Ultrasound of the area showed evidence of possible complex fluid collection, which was felt to either represent hematoma or abscess. The patient had a aspiration of the area done and took culture, both aerobic and anaerobic were negative. The Gram stain did show staphylococcus species coagulase negative bacillus species, non anthracis. The patient finished eight days of treatment with antibiotics for pneumonia and which also covered for cellulitis of the surgical site. The patient was also felt to have fluid overload and acute exacerbation of diastolic congestive heart failure, so was started on gentle diuresis. The patient responded well to treatment with improvement of her hypoxia and decrease in requirement for oxygen. The patient also had sacral decubitus ulcer on presentation, which was initially felt to be stage II. However, on later examination, it was felt the edges were rolled over and could not be staged, so Dr. Mckeon was consulted and the patient was setup for a followup with Dr. Mckeon in the clinic. Echocardiogram done at [facility] showed preserved systolic function, moderate to severe tricuspid insufficiency, mild t moderate mitral and aortic valve disease. This was performed on 07/03/2016. The patient was seen by physical therapy during hospitalization and underwent physical therapy sessions. On the day of discharge, the patient was off oxygen, stable vitals, did not have any complaints and functionally the patient was improving. The patient was discharged to [facility] for rehabilitation on physical therapy. PHYSICAL EXAMINATION: VITAL SIGNS: Temperature 98.5, pulse 83, respiratory rate 18, blood pressure 108/54, pulse oximetry 92% on room air. GENERAL: The patient awake, alert, oriented times three, sitting up in chair in no acute distress. HEENT: Normocephalic, atraumatic. Moist mucous membranes. Anicteric eyes. CHEST: Clear to auscultation. CARDIOVASCULAR: S1, S2 regular. There is a systolic murmur present. No gallop or rub. ABDOMEN: Soft, nontender. Bowel sounds are present. EXTREMITIES: Trace edema. LABORATORY DATA: White blood count (WBC) 13.9, hemoglobin 9.9, platelets 209. Sodium 139, potassium 3.8, chloride 100, bicarbonate 35, BUN 17, creatine 0.4, calcium 9.5. DISPOSITION: The patient is discharged to [facility]. DISCHARGE INSTRUCTIONS: The patient to followup with orthopedic surgeon in one week. The patient to followup with Dr. Mckeon within three days for evaluation of sacral decubitus ulcer. The patient follow with Dr. Hernandez per outpatient appointments. The patient to follow with primary care provider in two to three weeks' time. MAGALI
== END 2016-07-11 12:55 | DRG 177 ==
LOC: UNDOADMIN 13:00 → M ICU 13:00 → M MS5PR 07-06 11:33
PROVIDERS: ADMIT Hospitalist; ATTEND Internal Medicine Nephrology
DX: J15.1 Pneumonia due to Pseudomonas (principal); I50.33 Acute on chronic diastolic (congestive) heart failure; C91.10 Chronic lymphocytic leukemia of B-cell type not having achieved remission; L89.152 Pressure ulcer of sacral region, stage 2; R09.02 Hypoxemia; D64.9 Anemia, unspecified; Z79.899 Other long term (current) drug therapy; Z79.01 Long term (current) use of anticoagulants; Z66 Do not resuscitate; E87.6 Hypokalemia

== ENCOUNTER → 2016-07-16 | Outpatient (REF) ==
[~2016-07-16] MED LIST: ACET65TA PO; COLA100C3 PO; FURO40TA2 PO; GUAI60TA PO; IPRASOL4 INH; K-TA10TA PO; LEVO1INJ27 IV; LOVE1INJ2 SC; OXYC-517 PO; VANC1INJ45 IV; ZOSY3INJ2 IV
[2016-07-16 08:08] LABS: MEAN CORPUSCULAR HEMOGLOBIN 31.4 pg (27.0-33.0); MEAN CORPUSCULAR HGB CONC 33.4 g/dl (32.0-36.5); WHITE BLOOD COUNT 7.6 K/mm3 (4.0-10.0)
[2016-07-16 08:20] LABS: ANION GAP 4 MEQ/L (8-16); BLOOD UREA NITROGEN 15 MG/DL (7-18); CALCIUM LEVEL 9.3 MG/DL (8.8-10.2); CARBON DIOXIDE LEVEL 31 MEQ/L (21-32); CHLORIDE LEVEL 105 MEQ/L (98-107); GLOMERULAR FILTRATION RATE > 60.0 (>32); GLUCOSE, FASTING 87 MG/DL (83-110); POTASSIUM SERUM 3.9 MEQ/L (3.5-5.1); SODIUM LEVEL 140 MEQ/L (136-145)
== END ==
LOC: SKLAB5 08:46
PROVIDERS: ATTEND Internal Medicine
DX: I50.9 Heart failure, unspecified (principal)

== ENCOUNTER → 2016-07-23 | Outpatient (REF) ==
[2016-07-23 08:01] LABS: MEAN CORPUSCULAR HEMOGLOBIN 31.2 pg (27.0-33.0); MEAN CORPUSCULAR HGB CONC 32.8 g/dl (32.0-36.5); MEAN CORPUSCULAR VOLUME 95.2 fl (80.0-96.0); RED CELL DISTRIBUTION WIDTH 21.3 % (11.5-14.5); WHITE BLOOD COUNT 10.3 K/mm3 (4.0-10.0)
[2016-07-23 08:49] LABS: ANION GAP 5 MEQ/L (8-16); BLOOD UREA NITROGEN 17 MG/DL (7-18); CALCIUM LEVEL 9.6 MG/DL (8.8-10.2); CARBON DIOXIDE LEVEL 31 MEQ/L (21-32); CHLORIDE LEVEL 104 MEQ/L (98-107); CREATININE FOR GFR 0.47 MG/DL (0.55-1.02); GLOMERULAR FILTRATION RATE > 60.0 (>32); GLUCOSE, FASTING 81 MG/DL (83-110); POTASSIUM SERUM 4.6 MEQ/L (3.5-5.1); SODIUM LEVEL 140 MEQ/L (136-145)
== END ==
LOC: SKLAB5 08:22
PROVIDERS: ATTEND Internal Medicine
DX: I50.9 Heart failure, unspecified (principal); C95.90 Leukemia, unspecified not having achieved remission

== ENCOUNTER → 2016-07-30 | Outpatient (REF) ==
[2016-07-30 08:39] LABS: MEAN CORPUSCULAR HEMOGLOBIN 31.6 pg (27.0-33.0); MEAN CORPUSCULAR HGB CONC 32.5 g/dl (32.0-36.5); MEAN CORPUSCULAR VOLUME 97.2 fl (80.0-96.0); RED CELL DISTRIBUTION WIDTH 23.6 % (11.5-14.5); WHITE BLOOD COUNT 7.1 K/mm3 (4.0-10.0)
[2016-07-30 08:44] LABS: ANION GAP 3 MEQ/L (8-16); BLOOD UREA NITROGEN 26 MG/DL (7-18); CALCIUM LEVEL 9.8 MG/DL (8.8-10.2); CARBON DIOXIDE LEVEL 32 MEQ/L (21-32); CHLORIDE LEVEL 100 MEQ/L (98-107); CREATININE FOR GFR 0.43 MG/DL (0.55-1.02); GLOMERULAR FILTRATION RATE > 60.0 (>32); GLUCOSE, FASTING 85 MG/DL (83-110); POTASSIUM SERUM 4.2 MEQ/L (3.5-5.1); SODIUM LEVEL 135 MEQ/L (136-145)
== END ==
LOC: SKLAB5 08:59
PROVIDERS: ATTEND Internal Medicine
DX: I50.9 Heart failure, unspecified (principal); D64.9 Anemia, unspecified

== ENCOUNTER → 2016-08-06 | Outpatient (REF) ==
[2016-08-06 08:41] LABS: MEAN CORPUSCULAR HEMOGLOBIN 32.5 pg (27.0-33.0); MEAN CORPUSCULAR HGB CONC 33.2 g/dl (32.0-36.5); MEAN CORPUSCULAR VOLUME 97.9 fl (80.0-96.0); RED CELL DISTRIBUTION WIDTH 24.3 % (11.5-14.5); WHITE BLOOD COUNT 8.1 K/mm3 (4.0-10.0)
[2016-08-06 11:37] LABS: TRIPLE PHOSPHATE CRYSTALS SMALL
== END ==
LOC: SKLAB5 09:45
PROVIDERS: ATTEND Internal Medicine
DX: D64.9 Anemia, unspecified (principal)

== ENCOUNTER → 2016-08-13 | Outpatient (REF) ==
[~2016-08-13] MED LIST changes: -ACET65TA PO; -COLA100C3 PO; +COLA100C5 PO; -GUAI60TA PO; +MAPA325T3 PO; +MUCI600T31 PO
[2016-08-13 09:04] LABS: MEAN CORPUSCULAR HEMOGLOBIN 32.5 pg (27.0-33.0); MEAN CORPUSCULAR HGB CONC 32.8 g/dl (32.0-36.5); MEAN CORPUSCULAR VOLUME 99.3 fl (80.0-96.0); RED CELL DISTRIBUTION WIDTH 26.8 % (11.5-14.5); WHITE BLOOD COUNT 8.3 K/mm3 (4.0-10.0)
== END ==
LOC: SKLAB5 07:51
PROVIDERS: ATTEND Internal Medicine
DX: D64.9 Anemia, unspecified (principal)

== ENCOUNTER 2016-08-15 09:01 | Outpatient (REF) ==
[~2016-08-15] VITALS: Ht 157.5 cm; Wt 47.2 kg
[2016-08-15 09:05] VITALS: BP 104/59
[2016-08-15] MEDS ORDERED: diphenhydrAMINE 25 MG CAP PO ONE (09:30)
[2016-08-15] MEDS ORDERED: ACETAMINOPHEN TAB 650MG DOSE (2X325MG) PO ONE (09:30)
[2016-08-15] MEDS ORDERED: FUROSEMIDE 20 MG/2 ML VIAL (J1940) IV ONE (12:00)
== END 2016-08-15 18:51 ==
LOC: M OPCLI4PV 09:01 → M MSPAV 09:01 → EDSTATUS 09:02 → M OPCLI4PV 18:51
PROVIDERS: ATTEND Internal Medicine
DX: D64.9 Anemia, unspecified (principal)